=== PATIENT | male | born 1995 | race Caucasian/White ===

== ENCOUNTER 2020-11-04 00:43 | Emergency (ER) | payer SELFPAY ==
[~2020-11-04] VITALS: Ht 188 cm; Wt 100.0 kg
[2020-11-04] MEDS ORDERED: ACETAMINOPHEN 325MG TABLET PO ONE (04:15)
[2020-11-04 06:18] VITALS: BP 133/71
== END 2020-11-04 06:20 | disposition home or self-care (01) ==
LOC: ER 00:43
DX: S09.90XA Unspecified injury of head, initial encounter (principal); F17.200 Nicotine dependence, unspecified, uncomplicated; V00.131A Fall from skateboard, initial encounter; Y93.51 Activity, roller skating (inline) and skateboarding; Y92.89 Other specified places as the place of occurrence of the external cause; Y99.8 Other external cause status
CPT/HCPCS: 71045; 93005; 99284